=== PATIENT | female | born 1995 | race Two or more races ===

== ENCOUNTER 2021-02-08 22:38 | Emergency (ER) | payer OTHER ==
[~2021-02-08] VITALS: Ht 160 cm; Wt 57.2 kg
[2021-02-08 22:52] VITALS: BP 114/64
[2021-02-08] MEDS ORDERED: TDAP [DIPH/PERTUSSIS/TET] 0.5 ML VIAL IM ONE (23:47)
[2021-02-08] MEDS: TDAP [DIPH/PERTUSSIS/TET] 0.5 ML VIAL IM ONE (23:52)
== END 2021-02-08 23:57 | disposition home or self-care (01) ==
LOC: ER 22:45
DX: S81.012A Laceration without foreign body, left knee, initial encounter (principal); W01.0XXA Fall on same level from slipping, tripping and stumbling without subsequent striking against object, initial encounter; Y93.89 Activity, other specified; Y92.89 Other specified places as the place of occurrence of the external cause; Y99.8 Other external cause status
CPT/HCPCS: 12002; 90471; 90715; 99283; A6403

== ENCOUNTER 2021-02-11 14:42 | Emergency (ER) | payer OTHER ==
[~2021-02-11] VITALS: Ht 160 cm; Wt 57.2 kg
[2021-02-11 15:06] VITALS: BP 110/75
--- NOTE | 2021-02-11 15:20 | NUR ---
Patient discharged to home in stable condition. Written and verbal after care instructions given. Patient verbalizes understanding of instruction. Pt ambulatory with a steady gait
== END 2021-02-11 15:20 | disposition home or self-care (01) ==
LOC: ER 14:49
DX: S81.812D Laceration without foreign body, left lower leg, subsequent encounter (principal); X58.XXXD Exposure to other specified factors, subsequent encounter

== ENCOUNTER 2021-02-17 11:31 | Emergency (ER) | payer OTHER ==
[~2021-02-17] VITALS: Ht 160 cm; Wt 57.2 kg
[2021-02-17 11:35] VITALS: BP 114/62
[2021-02-17] MEDS ORDERED: CEPH500C2 PO (11:49)
--- NOTE | 2021-02-17 12:10 | NUR ---
SUTURES REMOVED, LEFT KNEE COVERED WITH STERISTRIPS AND KERLIX BANDAGE. RX FOR ANTIBIOTIC PROVIDED. Patient discharged to home in stable condition. Written and verbal after care instructions given. Patient verbalizes understanding of instruction.
== END 2021-02-17 12:11 | disposition home or self-care (01) ==
LOC: ER 11:33
DX: S81.012D Laceration without foreign body, left knee, subsequent encounter (principal); W01.0XXD Fall on same level from slipping, tripping and stumbling without subsequent striking against object, subsequent encounter